=== PATIENT | male | born 1990 | race Caucasian/White ===

== ENCOUNTER 2017-11-13 10:29 | Inpatient (IN) | payer MEDICAID, SELFPAY ==
[2017-11-13 10:54] VITALS: BP 116/78; PULSE 69; RESP 20; TEMP 37.1; O2SAT 99; BMI 18.0
--- NOTE | 2017-11-13 11:13 | PCM.HP.STD ---
Problem List (1) Opiate withdrawal Status: Acute History of Present Illness Date of Admission: 11/13/17 Chief Complaint: opiate withdrawal The patient is a 27 year old M who has been injecting carfentanil for 2 years. Patient is voluntarily seeking meds for withdrawal. Patient was enrolled in a [facility] program in [place] approximately 2 months ago. Please inpatient program but thought that he could do it on his own only to quickly revert back to carfentanil. Patient presented with a CINA score of 26. [] Past Medical History Medical History: Medical History (Last Updated 11/13/17 @ 11:15 by Artemio Kendrick DO) Opiate abuse, continuous F11.10 Smoking Status: Heavy Smoker (>10/day) Tobacco Use: Cigarettes Alcohol: None Drugs: - - carfentinil - *Family History Maternal History Items: - - no heart disease Review of Systems Constitutional: Denies: Anorexia, Chills, Fever Eyes: Reports: - - glasses. Denies: Blurred vision, Double vision HEENT: Reports: - - rhinitis. Denies: Difficulty Hearing, Ear Pain, Eye Pain Cardiovascular: Denies: Chest Pain, Palpitations Respiratory: Denies: Cough, Shortness of breath at rest, Sputum production Gastrointestinal: Reports: Abdominal Pain, Diarrhea, Nausea. Denies: Vomiting Genitourinary: Denies: Dysuria Musculoskeletal: Denies: Joint Pain, Joint Tenderness Skin: Denies: Dryness, Jaundice Neurological: Reports: - - restless legs. Denies: Balance problems, Blurred vision, Double vision Psychiatric: Reports: Anxiety. Denies: Depression Endocrine: Denies: Change in Body Habitus Hematologic/ Lymphatic: Denies: Easy Bruising, Easy Bleeding, Hx of blood clot VTE Information - Inpt Only VTE Present on Admission: No VTE Mechan Device Prophylaxis: None VTE Pharm Prophylaxis ordered?: No Reason prophylaxis not ordered:: Procedure Not Indicated Patient Problems: Active and Suspected Problems (Last Updated 11/13/17 @ 11:15 by Artemio Kendrick DO) Opiate withdrawal (Acute) - Physical Exam General: Alert, No apparent distress, - - anxious HEENT: Atraumatic, Normocephalic Neck: No Nodes, Thyroid Normal Size and Texture Lungs: Clear to auscultation, Normal air movement, No rhonchi, No wheeze Cardiovascular: Regular rate, Regular Rhythm, Normal S1, Normal S2, No murmurs Abdomen: Bowel Sounds Present, Soft, Non Tender, Non-Distended, No Hepato-splenomegaly, Passing Flatus Extremities: No edema, No Calf Tenderness Skin: No rashes, - - SQ injections on dorsum of hands. Musculoskeletal: No Tenderness to Palpation of Joints or Extremities, Cachexia Neurological: - Psych/Mental Status: Agitated, Anxious Vital Signs Temp Pulse Resp BP Pulse Ox 37.1 C 69 20 H 116/78 99 11/13/17 10:54 11/13/17 10:54 11/13/17 10:54 11/13/17 10:54 11/13/17 10:54 Oxygen Delivery Method Room Air Assessment/Plan All Active Problems (Last Updated 11/13/17 @ 11:15 by Artemio Kendrick DO) Opiate withdrawal (Acute) 1. Carfentanil withdrawal CINA of 28 pt will be enrolled in the [facility] medical stabilization protocol for opiates with Subutex. additionally, he will have other medications for other somatic complaints. Given that this is his second attempt in 2 months, concerned about pt failing again. Code Visit Inpatient E&M: 90073 Init Hosp L2
--- NOTE | 2017-11-13 11:21 | HP.PCM_ITS ---
Problem List (1) Opiate withdrawal Status: Acute History of Present Illness Date of Admission: 11/13/17 Chief Complaint: opiate withdrawal The patient is a 27 year old M who has been injecting carfentanil for 2 years. Patient is voluntarily seeking meds for withdrawal. Patient was enrolled in a [facility] program in [place] approximately 2 months ago. Please inpatient program but thought that he could do it on his own only to quickly revert back to carfentanil. Patient presented with a CINA score of 26. [] Past Medical History Medical History: Medical History (Last Updated 11/13/17 @ 11:15 by Artemio Kendrick DO) Opiate abuse, continuous F11.10 Smoking Status: Heavy Smoker (>10/day) Tobacco Use: Cigarettes Alcohol: None Drugs: - - carfentinil - *Family History Maternal History Items: - - no heart disease Review of Systems Constitutional: Denies: Anorexia, Chills, Fever Eyes: Reports: - - glasses. Denies: Blurred vision, Double vision HEENT: Reports: - - rhinitis. Denies: Difficulty Hearing, Ear Pain, Eye Pain Cardiovascular: Denies: Chest Pain, Palpitations Respiratory: Denies: Cough, Shortness of breath at rest, Sputum production Gastrointestinal: Reports: Abdominal Pain, Diarrhea, Nausea. Denies: Vomiting Genitourinary: Denies: Dysuria Musculoskeletal: Denies: Joint Pain, Joint Tenderness Skin: Denies: Dryness, Jaundice Neurological: Reports: - - restless legs. Denies: Balance problems, Blurred vision, Double vision Psychiatric: Reports: Anxiety. Denies: Depression Endocrine: Denies: Change in Body Habitus Hematologic/ Lymphatic: Denies: Easy Bruising, Easy Bleeding, Hx of blood clot VTE Information - Inpt Only VTE Present on Admission: No VTE Mechan Device Prophylaxis: None VTE Pharm Prophylaxis ordered?: No Reason prophylaxis not ordered:: Procedure Not Indicated Patient Problems: Active and Suspected Problems (Last Updated 11/13/17 @ 11:15 by Artemio Kendrick DO ) Opiate withdrawal (Acute) - Physical Exam General: Alert, No apparent distress, - - anxious HEENT: Atraumatic, Normocephalic Neck: No Nodes, Thyroid Normal Size and Texture Lungs: Clear to auscultation, Normal air movement, No rhonchi, No wheeze Cardiovascular: Regular rate, Regular Rhythm, Normal S1, Normal S2, No murmurs Abdomen: Bowel Sounds Present, Soft, Non Tender, Non-Distended, No Hepato- splenomegaly, Passing Flatus Extremities: No edema, No Calf Tenderness Skin: No rashes, - - SQ injections on dorsum of hands. Musculoskeletal: No Tenderness to Palpation of Joints or Extremities, Cachexia Neurological: - Psych/Mental Status: Agitated, Anxious Vital Signs Temp Pulse Resp BP Pulse Ox 37.1 C 69 20 H 116/78 99 11/13/17 10:54 11/13/17 10:54 11/13/17 10:54 11/13/17 10:54 11/13/17 10:54 Oxygen Delivery Method Room Air Assessment/Plan All Active Problems (Last Updated 11/13/17 @ 11:15 by Artemio Kendrick DO) Opiate withdrawal (Acute) 1. Carfentanil withdrawal * CINA of 28 * pt will be enrolled in the [facility] medical stabilization protocol for opiates with Subutex. * additionally, he will have other medications for other somatic complaints. * Given that this is his second attempt in 2 months, concerned about pt failing again. Code Visit Inpatient E&M: 52139 Init Hosp L2
[2017-11-13 11:40] VITALS: BP 116/78; PULSE 69; RESP 20; TEMP 37.1; BMI 18.8
[2017-11-13] MEDS: Methocarbamol 750 MG Tablet PO ×2 (11:42→18:23)
[2017-11-13] MEDS: Dicyclomine 10 MG Capsule 20 MG PO ×2 (11:42→22:23)
[2017-11-13] MEDS: Loperamide 2 MG Capsule PO (11:42)
[2017-11-13] MEDS: hydrOXYzine PAM 25 MG Capsule 50 MG PO ×2 (11:42→18:23)
[2017-11-13] MEDS: Buprenorphine HCl 2 MG TAB.SUBL SL ×2 (11:42→19:11)
[2017-11-13 11:43] LABS: Absolute Lymphocyte Count 1.64 X10^3/ul (0.83-4.51); Absolute Neutrophil Count 13.4 X10^3/uL (2.0-7.7); Basophil# 0.02 X10^3/uL; Basophil% 0.1 % (0-1); Eosinophil# 0.03 X10^3/uL; Eosinophils% 0.2 % (0-5); Hemoglobin 14.5 g/dl (13.0-16.5); Lymphocyte # 1.64 X10^3/ul (4.0); Lymphocyte % 10.2 % (19-41); Mean Corp Hgb Conc 33.7 g/gl (32-36); Mean Platelet Vol. 9.4 fl (6.2-12.0); Monocyte# 0.96 X10^3/uL; Neutrophil # 13.44 X10^3/uL (2.7-7.7); Neutrophil % 83.3 % (47-70); Platelet Count 323 K/mm3 (150-450); RBC Distribution Width CV 13.1 % (11.6-14.6); RBC Distribution Width SD 40.6 fl (35.1-43.9); White Blood Count 16.1 K/mm3 (4.4-11.0)
[2017-11-13] MEDS: Ondansetron ODT 4 MG Tablet PO (11:43)
[2017-11-13] MEDS: cloNIDine HCl 0.1 MG Tablet PO ×3 (11:43→18:24)
[2017-11-13 11:47] LABS: POSITIVE COUNT NO; POSITIVE DIFFERENTIAL NO; POSITIVE MORPHOLOGY NO
[2017-11-13 11:55] LABS: ALB/GLOB Ratio 1.2 RATIO (0.9-2.4); AST(SGOT) 15 U/L (15-37); Alanine Aminotransfer ALT/SGPT 19 U/L (16-61); Albumin, Serum 4.3 g/dL (3.2-5.0); Alkaline Phosphatase 103 U/L (45-117); Anion Gap 12 (5-15); BUN 10 mg/dL (7-18); BUN/Creat Ratio 9.3 RATIO (10-20); Calcium,Total 9.4 mg/dL (8.5-10.1); Chloride 101 mmol/L (98-107); Creatinine, Serum 1.07 mg/dL (0.70-1.30); EST Glomerular Filtration Rate 88 mL/min (>60); Est Glom Filt Rate - Afr Amer 106 mL/min (>60); Estimated Creatinine Clearance 89.95 ml/min; Globulin 3.7 g/dL (2.2-4.2); Glucose 107 mg/dL (74-106); Potassium 3.2 mmol/L (3.5-5.1); Sodium Level 139 mmol/L (136-145)
[2017-11-13 12:44] LABS: HIV - WCH Non-Reactive (Nonreactive)
[2017-11-13 13:25] LABS: Amphetamine Urine VISTA NEGATIVE (<1000 ng/mL); Barbiturate Urine VISTA NEGATIVE (< 200 ng/mL); Benzodiazepine Urine VISTA POSITIVE (< 200 ng/mL); Cocaine Urine VISTA NEGATIVE (< 300 ng/mL); Ecstacy Urine VISTA NEGATIVE (< 500 ng/mL); Methadone Urine VISTA NEGATIVE (< 300 ng/mL); PCP Urine VISTA NEGATIVE (< 25 ng/mL); THC Urine VISTA NEGATIVE (< 50 ng/mL); Vista UDS pH Range 5
[2017-11-13] MEDS: Pramipexole Di-HCl 0.25 MG Tablet PO (13:39)
[2017-11-13] MEDS: Ibuprofen 600 MG Tablet PO (13:39)
--- NOTE | 2017-11-13 14:51 | CHAPLAIN ---
Type of Pastoral Visit _x__ Initial Visit ___ Follow-up Visit ___ On-call Visit ___ General Patient Visit ___ Spiritual Assessment ___ Family Conference ___ Bereavement ___ Rapid Response ___ Code Blue ___ Other (describe below) Pastoral Care Referral From _x__ Patient _x__ Family ___ Nurse ___ Physician ___ Shopping Inspector ___ Tow Driver ___ Other (describe below) Sacrament/Intervention ___ Active listening ___ Anointing ___ Zoroastrian ___ Bereavement ___ Communion ___ Amairani exploration ___ ___ Life review _x__ Prayer ___ Reconciliation ___ Sacrament of Sick _x__ Supportive presence ___ Wedding ___ Other (describe below) Pastoral Comments RN reports on recent admission of patient and that his agitation is high; went into see this patient and found statement to be true; pt screams out verbally; pt gets in and out of bed numerous times during this visit; pt says that he has tried medical stabilization before but it was not this bad; pt says that I can stay with him or leave and it is up to you; pt says that family brought him in today but that they have gone now; patient accepts a prayer; remained with patient for a few minutes longer as he continued to move about in bed and out of bed; reported to RN when I left the room
[2017-11-13 18:28] VITALS: BP 104/67; PULSE 68; RESP 16; TEMP 36.8
[2017-11-13] MEDS: Nicotine Polacrilex 2 MG GUM PO ×2 (21:14→22:23)
[2017-11-13] MEDS: traZODone 50 MG Tablet PO (21:14)
[2017-11-13 22:20] VITALS: BP 113/71; PULSE 59; RESP 16; TEMP 36.7
[2017-11-14] VITALS (7 sets, daily range): BP systolic 103–119; BP diastolic 61–80; PULSE 57–66; RESP 16–18; TEMP 36.6–37; O2SAT 99
[2017-11-14] MEDS: Pramipexole Di-HCl 0.25 MG Tablet PO ×2 (02:42→14:08)
[2017-11-14] MEDS: hydrOXYzine PAM 25 MG Capsule 50 MG PO ×3 (02:42→17:46)
[2017-11-14] MEDS: Nicotine Polacrilex 2 MG GUM PO ×8 (02:42→21:40)
[2017-11-14] MEDS: cloNIDine HCl 0.1 MG Tablet PO (02:42)
[2017-11-14] MEDS: Buprenorphine HCl 2 MG TAB.SUBL SL ×3 (02:42→19:38)
[2017-11-14 08:13] LABS: Hepatitis A IgM Antibody Negative (Negative); Hepatitis B Core AB IgM Negative (Negative)
--- NOTE | 2017-11-14 08:56 | PCM.PN.HOSP ---
Patient Problems: Active and Suspected Problems (Last Updated 11/13/17 @ 11:15 by Artemio Kendrick DO) Opiate withdrawal (Acute) Subjective: Feeling much better today. Didn't sleep well last night. Vitals/I&O's: Vital Signs Temp Pulse Resp BP Pulse Ox 36.8 C 64 16 103/69 99 11/14/17 06:12 11/14/17 06:12 11/14/17 06:12 11/14/17 06:12 11/13/17 10:54 Oxygen Delivery Method Room Air Weight: 61.326 kg Body Mass Index (BMI) 18.8 Intake and Output for Last 24 Hours 11/12/17 11/13/17 11/14/17 23:59 23:59 23:59 Intake Total 600 / 600 740 / 740 Balance 600 / 600 740 / 740 General: Alert, Cooperative, No apparent distress, - - resting in bed. not anxious nor agitated. HEENT: Atraumatic, Normocephalic Oral: Moist Mucosa, No Gingival or Mucosal Lesions/ Ulcerations Neck: No Nodes, Thyroid Normal Size and Texture Lungs: Clear to auscultation, Normal air movement, No rhonchi, No wheeze Cardiovascular: Regular rate, Regular Rhythm, Normal S1, Normal S2 Abdomen: Bowel Sounds Present, Soft, Non Tender, Non-Distended, No Hepato-splenomegaly Extremities: No edema, No Calf Tenderness Laboratory Results 11/13/17 11:30: WBC 16.1 H, RBC 5.00, Hgb 14.5, Hct 43.0, MCV 86.0, MCH 29.0, MCHC 33.7, RDW 13.1, RDW Differential 40.6, Plt Count 323, MPV 9.4, Immature Gran % (Auto) 0.200, Neut % (Auto) 83.3 H, Lymph % (Auto) 10.2 L, [place] % (Auto) 6.0, Eos % (Auto) 0.2, Baso % (Auto) 0.1, Absolute Neuts (auto) 13.4 H, Absolute Lymphs (auto) 1.64, Total Counted Not Reportable 11/13/17 11:30: Sodium 139, Potassium 3.2 L, Chloride 101, Carbon Dioxide 26.0, Anion Gap 12, BUN 10, Creatinine 1.07, Estim Creat Clear Calc 89.95, Est GFR (MDRD) Af Amer 106, Est GFR (MDRD) Non-Af 88, BUN/Creatinine Ratio 9.3 L, Glucose 107 H, Calcium 9.4, Total Bilirubin 0.50, AST 15, ALT 19, Alkaline Phosphatase 103, Total Protein 8.0, Albumin 4.3, Globulin 3.7, Albumin/Globulin Ratio 1.2 11/13/17 11:30: Hepatitis A IgM Ab Pending, Hep Bs Antigen Pending, Hep B Core IgM Ab Pending, Hepatitis C Ab (EIA) Pending 11/13/17 11:30: HIV 1&2 Antibody Non-Reactive 11/13/17 13:10: Urine Opiates Screen POSITIVE H, Urine Methadone Screen NEGATIVE, Ur Barbiturates Screen NEGATIVE, Ur Phencyclidine Scrn NEGATIVE, Ur Amphetamines Screen NEGATIVE, U Methamphetamin-MDMA NEGATIVE, U Benzodiazepines Scrn POSITIVE H, Urine Cocaine Screen NEGATIVE, U Cannabinoids Screen NEGATIVE, Ur Drug Screen Comment Current Medications Acetaminophen (Tylenol) 500 mg PO Q4H PRN PRN PRN Reason: Temp > 100.4 F Al Hydroxide/Mg Hydroxide (Mylanta Ii) 30 ml PO Q6H PRN PRN PRN Reason: dyspesia Buprenorphine HCl (Buprenorphine Hcl) 4 mg SL Q8H ESTEFANY PRN Reason: Taper Stop: 11/16/17 15:29 Last Admin: 11/14/17 02:42 Dose: 4 mg Chlordiazepoxide (Librium) 5 mg PO BID PRN PRN PRN Reason: ANXIETY Last Admin: 11/13/17 14:11 Dose: 5 mg Clonidine (Catapres) 0.1 mg PO Q2H PRN PRN PRN Reason: Hot/Cold Sweats or Anxiety Last Admin: 11/14/17 02:42 Dose: 0.1 mg Dicyclomine HCl (Bentyl) 20 mg PO Q6H PRN PRN PRN Reason: Abdomnial Discomfort Last Admin: 11/13/17 22:23 Dose: 20 mg Hydroxyzine HCl (Vistaril Vial) 50 mg IM Q6H PRN PRN PRN Reason: Breakthrough Anxiety Hydroxyzine Pamoate (Vistaril Pamoate Capsule) 50 mg PO Q6H PRN PRN PRN Reason: Mild Anxiety Last Admin: 11/14/17 02:42 Dose: 50 mg Ibuprofen (Motrin) 600 mg PO Q8H PRN PRN PRN Reason: Mild-Moderate Pain (1-5/10) Last Admin: 11/13/17 13:39 Dose: 600 mg Loperamide HCl (Imodium) 2 - 4 mg PO UD PRN PRN Reason: LOOSE STOOLS Last Admin: 11/13/17 11:42 Dose: 4 mg Magnesium Hydroxide (Milk Of Magnesia) 30 ml PO DAILY PRN PRN PRN Reason: Constipation Methocarbamol (Methocarbamol) 750 mg PO Q6H PRN PRN PRN Reason: Muscle Aches Last Admin: 11/13/17 18:23 Dose: 750 mg Nicotine (Nicoderm Cq (Pbkc)) 21 mg TRANSDERM. DAILY ESTEFANY Last Admin: 11/13/17 19:54 Dose: 21 mg Nicotine Polacrilex (Rugby Nicotine (Bkc)) 2 mg PO Q1H PRN PRN PRN Reason: Nicotine Craving Last Admin: 11/14/17 06:15 Dose: 2 mg Ondansetron HCl (Zofran Odt) 4 mg PO Q6H PRN PRN PRN Reason: NAUSEA Last Admin: 11/13/17 11:43 Dose: 4 mg Pramipexole Dihydrochloride (Mirapex) 0.25 mg PO Q12H PRN PRN PRN Reason: Restless Legs Last Admin: 11/14/17 02:42 Dose: 0.25 mg Trazodone HCl (Desyrel) 50 mg PO QHS ESTEFANY Last Admin: 11/13/17 21:14 Dose: 50 mg Medical Necessity - Tobacco Use Smoking Status: Heavy Smoker (>10/day) Tobacco Use: Cigarettes Assessment/Plan All Active Problems (Last Updated 11/13/17 @ 11:15 by Artemio Kendrick DO) Opiate withdrawal (Acute) 1. Acute Carfentanil withdrawal much improved today initial CINA of 28 pt will be enrolled in the [facility] medical stabilization protocol for opiates with Subutex. additionally, he will have other medications for other somatic complaints. Anticipated discharge will be 11/16, then further outpatient assistance (as per [facility]) Code Visit Inpatient E&M: 36907 Subs Hosp L2
--- NOTE | 2017-11-14 08:59 | PN_ITS ---
Patient Problems: Active and Suspected Problems (Last Updated 11/13/17 @ 11:15 by Artemio Kendrick DO ) Opiate withdrawal (Acute) Subjective: Feeling much better today. Didn't sleep well last night. Vitals/I&O's: Vital Signs Temp Pulse Resp BP Pulse Ox 36.8 C 64 16 103/69 99 11/14/17 06:12 11/14/17 06:12 11/14/17 06:12 11/14/17 06:12 11/13/17 10:54 Oxygen Delivery Method Room Air Weight: 61.326 kg Body Mass Index (BMI) 18.8 Intake and Output for Last 24 Hours 11/12/17 11/13/17 11/14/17 23:59 23:59 23:59 Intake Total 600 / 600 740 / 740 Balance 600 / 600 740 / 740 General: Alert, Cooperative, No apparent distress, - - resting in bed. not anxious nor agitated. HEENT: Atraumatic, Normocephalic Oral: Moist Mucosa, No Gingival or Mucosal Lesions/ Ulcerations Neck: No Nodes, Thyroid Normal Size and Texture Lungs: Clear to auscultation, Normal air movement, No rhonchi, No wheeze Cardiovascular: Regular rate, Regular Rhythm, Normal S1, Normal S2 Abdomen: Bowel Sounds Present, Soft, Non Tender, Non-Distended, No Hepato- splenomegaly Extremities: No edema, No Calf Tenderness Laboratory Results 11/13/17 11:30: WBC 16.1 H, RBC 5.00, Hgb 14.5, Hct 43.0, MCV 86.0, MCH 29.0, MCHC 33.7, RDW 13.1, RDW Differential 40.6, Plt Count 323, MPV 9.4, Immature Gran % (Auto) 0.200, Neut % (Auto) 83.3 H, Lymph % (Auto) 10.2 L, [place] % (Auto) 6.0, Eos % (Auto) 0.2, Baso % (Auto) 0.1, Absolute Neuts (auto) 13.4 H, Absolute Lymphs (auto) 1.64, Total Counted Not Reportable 11/13/17 11:30: Sodium 139, Potassium 3.2 L, Chloride 101, Carbon Dioxide 26.0, Anion Gap 12, BUN 10, Creatinine 1.07, Estim Creat Clear Calc 89.95, Est GFR ( MDRD) Af Amer 106, Est GFR (MDRD) Non-Af 88, BUN/Creatinine Ratio 9.3 L, Glucose 107 H, Calcium 9.4, Total Bilirubin 0.50, AST 15, ALT 19, Alkaline Phosphatase 103, Total Protein 8.0, Albumin 4.3, Globulin 3.7, Albumin/Globulin Ratio 1.2 11/13/17 11:30: Hepatitis A IgM Ab Pending, Hep Bs Antigen Pending, Hep B Core IgM Ab Pending, Hepatitis C Ab (EIA) Pending 11/13/17 11:30: HIV 1&2 Antibody Non-Reactive 11/13/17 13:10: Urine Opiates Screen POSITIVE H, Urine Methadone Screen NEGATIVE , Ur Barbiturates Screen NEGATIVE, Ur Phencyclidine Scrn NEGATIVE, Ur Amphetamines Screen NEGATIVE, U Methamphetamin-MDMA NEGATIVE, U Benzodiazepines Scrn POSITIVE H, Urine Cocaine Screen NEGATIVE, U Cannabinoids Screen NEGATIVE, Ur Drug Screen Comment Current Medications Acetaminophen (Tylenol) 500 mg PO Q4H PRN PRN PRN Reason: Temp > 100.4 F Al Hydroxide/Mg Hydroxide (Mylanta Ii) 30 ml PO Q6H PRN PRN PRN Reason: dyspesia Buprenorphine HCl (Buprenorphine Hcl) 4 mg SL Q8H ESTEFANY PRN Reason: Taper Stop: 11/16/17 15:29 Last Admin: 11/14/17 02:42 Dose: 4 mg Chlordiazepoxide (Librium) 5 mg PO BID PRN PRN PRN Reason: ANXIETY Last Admin: 11/13/17 14:11 Dose: 5 mg Clonidine (Catapres) 0.1 mg PO Q2H PRN PRN PRN Reason: Hot/Cold Sweats or Anxiety Last Admin: 11/14/17 02:42 Dose: 0.1 mg Dicyclomine HCl (Bentyl) 20 mg PO Q6H PRN PRN PRN Reason: Abdomnial Discomfort Last Admin: 11/13/17 22:23 Dose: 20 mg Hydroxyzine HCl (Vistaril Vial) 50 mg IM Q6H PRN PRN PRN Reason: Breakthrough Anxiety Hydroxyzine Pamoate (Vistaril Pamoate Capsule) 50 mg PO Q6H PRN PRN PRN Reason: Mild Anxiety Last Admin: 11/14/17 02:42 Dose: 50 mg Ibuprofen (Motrin) 600 mg PO Q8H PRN PRN PRN Reason: Mild-Moderate Pain (1-5/10) Last Admin: 11/13/17 13:39 Dose: 600 mg Loperamide HCl (Imodium) 2 - 4 mg PO UD PRN PRN Reason: LOOSE STOOLS Last Admin: 11/13/17 11:42 Dose: 4 mg Magnesium Hydroxide (Milk Of Magnesia) 30 ml PO DAILY PRN PRN PRN Reason: Constipation Methocarbamol (Methocarbamol) 750 mg PO Q6H PRN PRN PRN Reason: Muscle Aches Last Admin: 11/13/17 18:23 Dose: 750 mg Nicotine (Nicoderm Cq (Pbkc)) 21 mg TRANSDERM. DAILY ESTEFANY Last Admin: 11/13/17 19:54 Dose: 21 mg Nicotine Polacrilex (Rugby Nicotine (Bkc)) 2 mg PO Q1H PRN PRN PRN Reason: Nicotine Craving Last Admin: 11/14/17 06:15 Dose: 2 mg Ondansetron HCl (Zofran Odt) 4 mg PO Q6H PRN PRN PRN Reason: NAUSEA Last Admin: 11/13/17 11:43 Dose: 4 mg Pramipexole Dihydrochloride (Mirapex) 0.25 mg PO Q12H PRN PRN PRN Reason: Restless Legs Last Admin: 11/14/17 02:42 Dose: 0.25 mg Trazodone HCl (Desyrel) 50 mg PO QHS ESTEFANY Last Admin: 11/13/17 21:14 Dose: 50 mg Medical Necessity - Tobacco Use Smoking Status: Heavy Smoker (>10/day) Tobacco Use: Cigarettes Assessment/Plan All Active Problems (Last Updated 11/13/17 @ 11:15 by Artemio Kendrick DO) Opiate withdrawal (Acute) 1. Acute Carfentanil withdrawal * much improved today * initial CINA of 28 * pt will be enrolled in the [facility] medical stabilization protocol for opiates with Subutex. * additionally, he will have other medications for other somatic complaints. * Anticipated discharge will be 11/16, then further outpatient assistance (as per [employer]) Code Visit Inpatient E&M: 70265 Subs Hosp L2
[2017-11-14] MEDS: Dicyclomine 10 MG Capsule 20 MG PO ×2 (09:38→17:45)
[2017-11-14] MEDS: Methocarbamol 750 MG Tablet PO (09:38)
[2017-11-14] MEDS: Ondansetron ODT 4 MG Tablet PO (11:29)
[2017-11-14] MEDS: traZODone 50 MG Tablet PO (21:40)
[2017-11-15 03:38] VITALS: BP 97/68; PULSE 67; RESP 18; TEMP 36.3
[2017-11-15] MEDS: Buprenorphine HCl 2 MG TAB.SUBL SL ×2 (03:41→15:23)
[2017-11-15] MEDS: Nicotine Polacrilex 2 MG GUM PO ×6 (06:24→22:46)
[2017-11-15 09:50] VITALS: BP 109/65; PULSE 67; RESP 18; TEMP 36.8
[2017-11-15 11:18] LABS: Hep C Antibodies <0.1 s/co ratio (0.0-0.9)
[2017-11-15 11:20] LABS: HEPATITIS B SURFACE AG Positive (Negative)
[2017-11-15 14:00] VITALS: BP 108/70; PULSE 62; RESP 18; TEMP 37.1
[2017-11-15 14:06] VITALS: O2SAT 99
[2017-11-15] MEDS: hydrOXYzine PAM 25 MG Capsule 50 MG PO (14:09)
[2017-11-15 18:00] VITALS: BP 115/81; PULSE 80; RESP 18; TEMP 37
--- NOTE | 2017-11-15 18:54 | NURSING ---
pt requested increase in med to help with sleep due to not sleeping for [address] chang notified and ordered increase to 100mg of trazadone from 50mg
[2017-11-15 22:41] VITALS: BP 105/70; PULSE 71; RESP 18; TEMP 36.9
[2017-11-15] MEDS: traZODone 100 MG Tablet PO (22:42)
[2017-11-16] MEDS: Buprenorphine HCl 2 MG TAB.SUBL SL (03:39)
[2017-11-16 03:41] VITALS: BP 110/66; PULSE 66; RESP 18; TEMP 36.4
--- NOTE | 2017-11-16 09:11 | PCM.HOSP.N ---
Hospitalist Note Progress note from the , late addition. Patient stating that he is overall. Not sleeping well. Physical exam patient is no acute distress and afebrile. Calm, not tremulous not diaphoretic. Assessment and plan. 1. Acute opiate withdrawal with carfentanil. Overall improving. Continue with Subutex taper. Continue with other agents to help with other somatic complaints. Anticipated discharge is the . Code Visit Inpatient E&M: 94229 Subs Hosp L1 - billing for 11/15
--- NOTE | 2017-11-16 09:13 | PCM.DC ---
- Discharge Diagnoses Current Active Problems: Current Active and Chronic Problems (Last Updated 11/13/17 @ 11:15 by Artemio Kendrick DO) Opiate withdrawal (Acute) You will use the following diet at home:: No restrictions Your food should be the consistency of: Regular Discharge Activity: Return to Normal Activity Weight Bearing Status: Weight bearing as tolerated Call your doctor if you observe: Fever of 101 or Higher, Shortness of breath Additional Instructions: You need to follow up with a PCP. You will require additional studies for the Hepatitis B antigen and antibody (HBsAg and anti-HBs) in the next 2-3 months months to see if you have an active infection or if it is resolved. Allergies/Adverse Reactions: Allergies tomato Allergy (Verified 11/13/17 11:23) Unknown Medications to take at Discharge NK [NK] 11/13/17 Primary Care Physician: Care Physician,No Primary [Primary Care Provider] - Within 2 Weeks Please follow up with your Primary Care Physician in: Get established with new PCP. Test Results: Test results from this visit will be discussed in further detail at your follow-up appointment, if applicable. Proposed Discharge Date: 11/16/17
--- NOTE | 2017-11-16 09:18 | DCINST_ITS ---
- Discharge Diagnoses Current Active Problems: Current Active and Chronic Problems (Last Updated 11/13/17 @ 11:15 by Artemio Kendrick DO) Opiate withdrawal (Acute) You will use the following diet at home:: No restrictions Your food should be the consistency of: Regular Discharge Activity: Return to Normal Activity Weight Bearing Status: Weight bearing as tolerated Call your doctor if you observe: Fever of 101 or Higher, Shortness of breath Additional Instructions: You need to follow up with a PCP. You will require additional studies for the Hepatitis B antigen and antibody (HBsAg and anti-HBs ) in the next 2-3 months months to see if you have an active infection or if it is resolved. Allergies/Adverse Reactions: Allergies tomato Allergy (Verified 11/13/17 11:23) Unknown Medications to take at Discharge NK [NK] 11/13/17 Primary Care Physician: Care Physician,No Primary [Primary Care Provider] - Within 2 Weeks Please follow up with your Primary Care Physician in: Get established with new PCP. Test Results: Test results from this visit will be discussed in further detail at your follow- up appointment, if applicable. Proposed Discharge Date: 11/16/17
--- NOTE | 2017-11-16 09:23 | DS.PCM_ITS ---
Discharge Date and Diagnosis - Problem List Patient Problems: Active and Suspected Problems (Last Updated 11/13/17 @ 11:15 by Artemio Kendrick DO ) Hepatitis B surface antigen positive (Acute) Opiate withdrawal (Acute) Date of Admission: 11/13/17 Date of Discharge: 11/16/17 - Primary Discharge Diagnosis Active and Suspected Problems (Last Updated 11/13/17 @ 11:15 by Artemio Kendrick DO ) Hepatitis B surface antigen positive (Acute) Opiate withdrawal (Acute) Hospital Course and Treatment Operations: None Procedures: None Summary of Care Provided: The patient is a 27 year old M presents with acute opiate withdrawal secondary to carfentanil. Patient's intake CINA score is 28 with severe agitation and tremulousness. Patient was started on Subutex and the following day his symptoms were greatly improved. Patient stated that requisite 3 days and overall has improved. Patient was seen by Octavio Vanessa and andrea Valladares for further management. Patient was advised that this is a lifelong process and to utilize friends and families as well as other support to help him through this process. Patient expressed understanding. Is also reinforced the patient that if he were ever to relapse that if he were to go back to his previous dosing of opiates that he could overdose and . Patient underwent infectious workup for blood-borne pathogens including HIV and hepatitis C and have B. Patient's hepatitis C antibody was negative and his HIV was also negative. However, patient's hepatitis B surface antigen was positive. His core antibody was negative. Is unclear patient has an active infection or if it has resolved but I have encouraged patient to follow-up with primary care doctor and have hepatitis B surface antigen and antibody performed the next few months to see if that still ongoing or not. Of note, patient's LFTs were unremarkable. Physical exam: Patient is no acute distress and afebrile. Not diaphoretic not tremulous nor anxious. [] Discharge Diet: No Restrictions Discharge Activity: Return to Normal Activity Weight Bearing Status: Weight bearing as tolerated Call your doctor if you observe: Fever of 101 or Higher, Shortness of breath Home Medications: Medications to take at Discharge NK [NK] 11/13/17 Primary Care Physician: Care Physician,No Primary [Primary Care Provider] - Within 2 Weeks Please follow up with your Primary Care Physician in: Get established with new PCP. Disposition: Home Minutes spent on discharge:: 32 Patient Condition:: Fair Medical Necessity - Tobacco Use Smoking Status: Heavy Smoker (>10/day) Tobacco Use: Cigarettes Meaningful Use Info Meaningful Use Diagnoses (Choose all that apply): None applicable Code Visit Inpatient E&M: 02393 Disch Hosp
[2017-11-16 09:30] VITALS: BP 99/74; PULSE 107; RESP 16; TEMP 36.3
[2017-11-16] MEDS: Nicotine Polacrilex 2 MG GUM PO (09:36)
--- NOTE | 2017-11-16 10:22 | NURSING ---
Antonina with [facility] worked very hard to assist patient with placement into rehab facility. Patient has changed his mind and told Antonina yesterday that he no longer has the number to one of the facilities due to housekeeping throwing it away. However, patient had multiple cups and snack wrappers over bed side tray and this RN cleared off after patient stated this. Today Antonina had a few options for patient- [facility] and [facility]. She had called and confirmed that both facilities would be able to accept him today. She entered room- and notified patient of same. [facility] superintendent plant reported by patient to state to him over the phone that he must be there by 1200 today. Patient states that will not work. He states he must go home for 24 hours and then will admit himself in the morning. Patient and grandma notified by Antonina that patient must be admitted to [facility] by this afternoon because they do not admit of Monday or the weekend. Patient and grandma verbalized understanding. However, patient became agitated and stated directly- I already told you I will not go to rehab until tomorrow morning. He notified his grandma that he needed to see his girlfriend. patient states he lives in [place] and that he will not make 1200 and refuses to go to [facility] due to inability to be admitted tomorrow. Patient and grandma began arguing between options and patient's stubbornness that he will not go until tomorrow. This RN exited to obtain discharge information. Patient was on telephone upon reentry of room by this RN and Antonina- he had called a rehab facility in [place]. Antonina educated alana that location has many people in it and that the one in [place] is smaller and more individualized with many options to assist patient. Patient grimaced and stated firmly- I already told you- I will not go today. He notified this RN that TB test would still need to be administered. Notified patient that TB test will have to be given at facility- as TB test cost money and there is no certainty that he would actually follow through with his own plan and completely rejected plans [facility] worked so hard with patient, grandma and home health care social worker to make. Facility notified him they would be able to give to patient. Patient denied further needs.
== END 2017-11-16 10:00 | disposition home or self-care (01) | DRG 434 ==
DX: F11.23 Opioid dependence with withdrawal (principal); R64 Cachexia; F17.210 Nicotine dependence, cigarettes, uncomplicated; R76.8 Other specified abnormal immunological findings in serum; Z68.1 Body mass index [BMI] 19.9 or less, adult
CPT/HCPCS: 80053; 80074; 80307; 85025; 86703